=== PATIENT | female | born 1980 | race Caucasian/White ===

== ENCOUNTER 2021-12-26 19:13 | Emergency (ER) | payer BC, MEDICARE, SELFPAY ==
[2021-12-26 20:32] VITALS: BP 135/95; PULSE 70; RESP 16; TEMP 36.6; O2SAT 95; BMI 29.7
--- NOTE | 2021-12-26 20:41 | CT_ITS ---
PROCEDURE INFORMATION: Exam: CT Abdomen And Pelvis With Contrast Exam date and time: 12/26/2021 9:04 PM Age: 41 years old Clinical indication: Abdominal pain TECHNIQUE: Imaging protocol: Computed tomography of the abdomen and pelvis with contrast. Radiation optimization: All CT scans at this facility use at least one of these dose optimization techniques: automated exposure control; mA and/or kV adjustment per patient size (includes targeted exams where dose is matched to clinical indication); or iterative reconstruction. Contrast material: ISOVUE; Contrast volume: 75 ml; Contrast route: IV; COMPARISON: No relevant prior studies available. FINDINGS: Lungs: Mild scarring and atelectasis in the lower lungs. Liver: Low attenuation hepatic lesions measuring up to 5 mm in diameter are incompletely characterized, but are likely cysts. No followup imaging is recommended. Gallbladder and bile ducts: Normal. No calcified stones. No ductal dilation. Pancreas: Normal. No ductal dilation. Spleen: Normal. No splenomegaly. Adrenal glands: Normal. No mass. Kidneys and ureters: Normal. No hydronephrosis. Stomach and bowel: Nonspecific bowel wall thickening of portions of small bowel and colon. Appendix: Unremarkable appendix. Intraperitoneal space: Small amount of free fluid in the pelvis, which could be physiologic. Vasculature: Unremarkable. No abdominal aortic aneurysm. Lymph nodes: Unremarkable. No enlarged lymph nodes. Urinary bladder: Limited evaluation of the urinary bladder due to low urine volume. Reproductive: Uterine fibroid. Endovaginal tampon. Bones/joints: Unremarkable. No acute fracture. Soft tissues: Unremarkable. Other findings: Stigmata of old granulomatous disease. IMPRESSION: 1. Limited evaluation of the urinary bladder due to low urine volume. Please exclude infection clinically. 2. Nonspecific bowel wall thickening of portions of small bowel and colon. Please correlate for evidence of enterocolitis clinically.
[2021-12-26 20:49] LABS: Coronavirus 19, PCR Not Detected (NotDetected); Influenza A, PCR Not Detected (NotDetected); Influenza B, PCR Not Detected (NotDetected)
[2021-12-26 20:53] LABS: Basophils # 0.2 K/mm3 (0-0.2); Eosinophils # 0.1 K/mm3 (0.0-0.4); Eosinophils % 0.6 % (0.1-12.0); Hematocrit 43.4 % (37.0-47.0); Lymphocytes # 2.5 K/mm3 (0.7-4.5); Lymphocytes % 17.5 % (10-50); Mean Corpuscular HGB Conc 32.3 g/dL (31.8-35.4); Mean Corpuscular Hemoglobin 32.8 pg (27.0-31.2); Mean Corpuscular Volume 101.7 fl (81-99); Mean Platelet Volume 8.7 fl (7.4-10.4); Monocytes # 0.7 K/mm3 (0.1-1.0); Neutrophils # 10.9 K/mm3 (1.8-7.8); Neutrophils % 75.9 % (37.0-80.0); Platelet Count 383 K/mm3 (142-424); Red Blood Count 4.27 M/mm3 (4.20-5.40); White Blood Count 14.4 K/mm3 (4.8-10.8)
[2021-12-26 20:57] LABS: Microscopic, Urine URINE MICROSCOPIC (MICROSCOPIC)
[2021-12-26 20:57] LABS: Alanine Aminotransferase 32 U/L (12-78); Albumin Level 3.9 g/dl (3.5-5.0); Albumin/Globulin Ratio 1.4 (1.1-1.8); Alkaline Phosphatase 112 U/L (38-126); Amylase 51 U/L (30-110); Anion Gap 11.7 mEq/L (5-15); Aspartate Amino Transferase 35 U/L (14-36); Blood Urea Nitrogen 12 mg/dl (7-17); Calcium 8.7 mg/dl (8.4-10.2); Carbon Dioxide 27 mmol/L (22.0-30.0); Chloride 107 mmol/L (98-107); Creatinine Clearance Estimated 170 mL/min (50-200); Estimated Glomerular Filt Rate 111 ml/min (>60); GFR (African American) 134 ML/MIN (>60); Globulin 2.7 g/dL (1.3-3.2); Glucose 100 mg/dl (74-100); Lipase 33 U/L (23-300); Potassium 3.7 mmoL/L (3.5-5.1); Sodium 142 mmol/L (136-145); Total Protein,Serum 6.6 g/dl (6.3-8.2)
[2021-12-26 20:59] LABS: Bilirubin,Total < 0.1 mg/dl (0.2-1.3)
[2021-12-26 20:59] LABS: Appearance,Urine CLEAR (Clear); Blood, Urine 2+ (Negative); Color,Urine DK YELLOW (Yellow); Glucose,Urine (UA) Negative (Negative); Ketones,Urine Negative (Negative); Leukocyte Esterase,Urine TRACE (Negative); Nitrate,Urine POSITIVE (Negative); Protein,Urine TRACE (Negative); Specific Gravity, Urine >= 1.030 (1.005-1.030); Urobilinogen,Urine 0.2 EU/dl (0.2)
[2021-12-26 21:01] LABS: Bilirubin,Urine 1+ (Negative)
[2021-12-26 21:02] LABS: Urine Pregnancy, HCG Qual. Negative (Negative)
[2021-12-26 21:03] LABS: C-Reactive Protein 9.9 mg/L (0-4)
[2021-12-26 21:12] LABS: Bacteria,Urine 1+ /lpf; Mucus,Urine 4+ /lpf; WBC,Urine Occasional #/hpf (0-3)
[2021-12-26 21:17] LABS: Erythrocyte Sedimentation Rate 18 mm/hr (0-20); Procalcitonin 0.062 ng/mL (0.0-2.0)
[2021-12-26 22:39] VITALS: BP 130/94; PULSE 70; RESP 16; TEMP 36.6; O2SAT 99
== END 2021-12-26 22:45 | disposition left against medical advice (07) ==
PROVIDERS: Emergency Provider Emergency Medicine; PCP Emergency Medicine
DX: Z53.21 Procedure and treatment not carried out due to patient leaving prior to being seen by health care provider (principal); R10.9 Unspecified abdominal pain; R19.7 Diarrhea, unspecified
CPT/HCPCS: 74177; 80053; 81001; 81025; 82150; 83690; 84145; 85025; 85651; 86140; C9803; J2405; Q9967; U0003; U0005

== ENCOUNTER 2024-08-04 10:01 | Outpatient (CLI) | payer BC, MEDICARE, SELFPAY ==
--- NOTE | 2024-08-04 10:05 | US_ITS ---
FINAL REPORT TECHNIQUE: Real-time grayscale and color ultrasound of the soft tissues of the neck was performed. CLINICAL HISTORY: RT NECK/SUBMANDIBULAR LYMPHNODE FINDINGS: Ultrasound images of the area of concern in the right side of the neck/submandibular region were obtained. Color Doppler images were submitted. The submandibular and parotid glands are normal. There are few scattered normal-appearing lymph nodes. No mass or enlarged lymph nodes identified. IMPRESSION: Unremarkable exam. If clinical suspicion is high for enlarged lymph nodes, consider contrasted CT or MRI. Reviewed, Interpreted and Dictated by Dwayne Dunaway MD Transcribed by Larisa Rodriguez Authenticated and [facility]
== END 2024-08-04 23:59 | disposition home or self-care (01) ==
LOC: RAD 10:02
PROVIDERS: PCP Registered Nurse; Visit Provider Registered Nurse
DX: R59.0 Localized enlarged lymph nodes (principal)
CPT/HCPCS: 76536

== ENCOUNTER 2024-09-08 10:03 | Outpatient (CLI) | payer BC, MEDICARE, SELFPAY ==
--- NOTE | 2024-09-08 10:10 | CT_ITS ---
FINAL REPORT TECHNIQUE: Thin section axial CT images with coronal and sagittal reformats were obtained through the neck after the administration of IV contrast. This study was performed with techniques to keep radiation doses as low as reasonably achievable (ALARA). Individualized dose reduction techniques using automated exposure control or adjustment of mA and/or kV according to the patient's size were employed. CLINICAL HISTORY: RT SUBMANDIBULAR AREA/ENLARGED LYMPHNODE COMPARISON: None FINDINGS: CT NECK SOFT TISSUES WITH CONTRAST: The nasopharynx, oropharynx, epiglottis, pharynx, larynx are all unremarkable in appearance. The thyroid is homogeneous. There is streak artifact noted secondary to a metallic orthopedic plate and screws in the right mandible. No masses are identified in the submandibular or parotid glands. There are a few mildly prominent right submandibular nodes, with an index node measuring 12 mm in size just lateral to the submandibular gland. There are small submental nodes present as well, also mildly enlarged. No left cervical adenopathy is noted. The sinuses and mastoid air cells are clear. IMPRESSION: There are a few mildly prominent right submandibular and submental nodes, the most prominent measuring up to 12 mm in size just lateral to the submandibular gland. Favor that these represent reactive adenopathy. The submandibular and parotid glands are unremarkable. Reviewed, Interpreted and Dictated by Veena Garcia MD Transcribed by Geno Aden Authenticated and [facility]
[2024-09-08] MEDS: SODIUM CHLORIDE 0.9% 10ML SYR (RAD ONLY) 10 ML IV (10:34)
[2024-09-08] MEDS: IOPAMIDOL-370 (76%);100ML BOTTLE 75 ML IV (10:34)
== END 2024-09-08 23:59 | disposition home or self-care (01) ==
LOC: RAD 10:06
PROVIDERS: PCP Registered Nurse; Visit Provider Registered Nurse
DX: R59.0 Localized enlarged lymph nodes (principal)
CPT/HCPCS: 70491; Q9967

== ENCOUNTER 2024-10-06 15:08 | Outpatient (CLI) | payer MEDICARE, BC, SELFPAY ==
--- NOTE | 2024-10-06 15:13 | MR_ITS ---
PROCEDURE INFORMATION: Exam: MR Face Without and With Contrast Exam date and time: 10/06/2024 3:18 PM Age: 43 years old Clinical indication: Jaw pain; Right sided swollen lymph node under mandible x 6 months. Orif right mandible in 2016; Additional info: Metal in jaw*pain in RT jaw TECHNIQUE: Imaging protocol: Magnetic resonance imaging of the face without and with contrast. Contrast material: PROHANCE; Contrast volume: 16 ml; Contrast route: IV; COMPARISON: CT SOFT TISSUE NECK W CON 09/08/2024 10:23 AM FINDINGS: Examination is limited by patient motion and susceptibility artifact from right mandibular hardware. Bilateral parotid glands and submandibular glands appear within normal limits. No pathologically enlarged lymph nodes by short axis measurement criteria. No soft tissue inflammatory change or fluid collection. There is skin marker on the right which overlies a normal appearing right submandibular gland. No pathologic marrow signal. Major vascular flow voids of the neck are preserved. No significant central canal compromise involving the cervical spine. IMPRESSION: 1. Examination is limited by patient motion and susceptibility artifact arising from right-sided mandibular hardware. 2. No definite acute abnormality is visualized. 3. No pathologic adenopathy by short axis measurement criteria.
[2024-10-06] MEDS: SODIUM CHLORIDE 0.9% 10ML SYR (RAD ONLY) 10 ML IV (16:30)
[2024-10-06] MEDS: GADOTERIDOL INJ 20ML SYRINGE 16 ML IV (16:30)
== END 2024-10-06 23:59 | disposition home or self-care (01) ==
LOC: RAD 15:10
PROVIDERS: PCP Registered Nurse; Visit Provider Registered Nurse
DX: R68.84 Jaw pain (principal); Z96.7 Presence of other bone and tendon implants
CPT/HCPCS: 70543; A9576